=== PATIENT | male | born 1955 | race Caucasian/White ===

== ENCOUNTER 2019-05-03 08:41 | Day surgery (SDC) | payer MEDICARE ==
[2019-05-03] MEDS ORDERED: NACL 0.9% 1000 ML 1,000 ML IV SCH (11:00)
--- NOTE | 2019-05-03 11:06 | Anesthesia Day of Surgery ---
Anesthesia Day of Surgery - Day of Surgery Patient Examined: Yes Patient H&P Reviewed: Yes Patient is NPO: Yes Beta Blockers: Yes
--- NOTE | 2019-05-03 11:10 | Anesthesia Consultation ---
Anesthesia Consult and Med Hx Date of service: 05/03/19 - Airway Anesthetic Teeth Evaluation: Edentulous ROM Head & Neck: Adequate Mental/Hyoid Distance: Adequate Mallampati Class: Class II Intubation Access Assessment: Good - Pre-Operative Health Status ASA Pre-Surgery Classification: ASA3 Proposed Anesthetic Plan: MAC - Pulmonary Hx Smoking: Yes SOB: Yes COPD: Yes (HOME O2) Hx Sleep Apnea: Yes - Cardiovascular System Hx Hypertension: Yes Hx Coronary Artery Disease: Yes (Saw vacation sales advisor two months ago; NST-01/2019 ok per daughter) Hx Heart Attack/AMI: Yes - Central Nervous System CVA: Yes (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
[2019-05-03] MEDS ORDERED: XYLOCAINE MPF 2% ONE (12:00)
[2019-05-03] MEDS ORDERED: DIPRIVAN 10 MG/ML IV ONE ×3 (12:05)
[2019-05-03] MEDS ORDERED: WATER FOR IRRIG STERILE IR ONE (12:14)
--- NOTE | 2019-05-03 12:43 | Short Stay Summary ---
Short Stay Documentation Date of service: 05/03/19 Narrative H&P: The patient presents for EGD to evaluate epigastric pain and for screening colonoscopy having had no prior colonoscopy. No FH of colon neoplasia. - History Past Medical History: CAD, COPD, hypertension, stroke Past Surgical History: No surgical history Social history: no significant social history, lives with family, smoking (former smoker), no alcohol abuse - Allergies and Medications Current Medications: Allergies No Known Allergies Allergy (Verified 04/30/19 11:16) Home Medications Medication Instructions Recorded Confirmed Last Taken Type Albuterol Oral Liq (Nf) 2.5 mg INHALATION DAILY 04/30/19 04/30/19 Unknown History Atorvastatin 10 mg PO DAILY 04/30/19 05/03/19 05/02/19 History Breo Ellipta 100-25 Mcg INH 1 puff INHALATION DAILY 04/30/19 05/03/19 05/03/19 History Carvedilol 3.125 mg PO BID 04/30/19 05/03/19 05/02/19 History Hydroxyzine HCl 25 mg PO BID PRN 04/30/19 05/03/19 05/02/19 History ProAir HFA Inhaler 1 puff INHALATION PRN PRN 04/30/19 05/03/19 05/03/19 History Tamsulosin 0.4 mg PO DAILY 04/30/19 05/03/19 05/02/19 History Active Medications Sodium Chloride (Nacl 0.9% 1000 Ml) 1,000 mls @ 50 mls/hr IV DIRECT NICHELLE Last Admin: 05/03/19 11:25 Dose: 50 mls/hr Documented by: - Physical exam General appearance: no acute distress, well-nourished Integumentary: no rash, no growths, no abnormal pigmentation HEENT: Atraumatic, PERRLA, EOMI, Mucous membr. moist/pink Lungs: Clear to auscultation Breasts: deferred Heart: Regular rate, Normal S1, Normal S2, No murmurs Gastrointestinal: normoactive bowel sounds, no tenderness, no distended, no masses, no guarding, no organomegaly, no obese Male Genitourinary: deferred Rectal Exam: normal exam-external/orifice, no mass Extremities: no ischemia, pulses intact, pulses symmetrical, No edema, normal temperature, normal color, Full ROM Neurological: Normal gait, Normal speech, Strength at 5/5 X4 ext, Normal tone, Sensation intact, Cranial nerves 3-12 NL - Brief post op/procedure progress note Date of procedure: 05/03/19 Findings: reports dictated Estimated blood loss: none Pathology: list (antral biopsies for h.pyloris) Specimen disposition: to lab Condition: stable - Disposition Condition at discharge: Good - Discharge Diagnoses (1) Epigastric pain Status: Acute (2) Colon cancer screening Status: Acute Short Stay Discharge Plan Activity: other (no driving for 24 hours) Weight Bearing Status: Full Weight Bearing Diet: regular Follow up with: TOM COFFMAN MD [Primary Care Provider] - 7 Days
--- NOTE | 2019-05-03 12:47 | Operative Report ---
Operative Report Operative Report: Date of procedure: 05/03/2019 Procedure: Esophagogastroduodenoscopy with biopsies of the antrum for H. pylori Preprocedure diagnosis: Epigastric pain. History of ulcers. Post procedure diagnosis: Multiple shallow duodenal ulcers. Gastritis. Endoscopist: Dr. Mcneil Anesthesia: Monitored anesthesia care per anesthesia department Medications: Propofol per anesthesia. Estimated blood loss: We will After careful discussion of the nature and purpose of the procedure as well as details the technique risks benefits and alternatives consent was obtained. The patient was placed in the left lateral decubitus position and medicated per anesthesia. The tip of the [employer] EQ 570 video scope was passed per orum under direct vision into the esophagus and advanced into the stomach and descending duodenum. The descending duodenum the duodenal bulb reveals multiple shallow ulcers from 5-7 mm in size. The pylorus was symmetrical and normal. The scope was withdrawn into the stomach and the stomach then gently insufflated with air. The antrum revealed patchy erythema but no ulcers. 3 biopsies were taken to assess for H. pylori infection. The stomach was further insufflated and the scope was then retroflexed and partially withdrawn. The cardia, fundus, and body of the stomach were within normal limits and easily distensible.The scope was then withdrawn in the forward position. The esophagogastric junction was at 40 cm. The esophageal body was normal throughout. The procedure was was well tolerated and the patient was observed in recovery. Impressions: Multiple shallow duodenal ulcers. Biopsies of the antrum pending for H. pylori. Mild gastritis. Plan: Await pathology. The patient called the office in approximately 10 days. Begin omeprazole 40 mg daily. Electronically signed: Andrei Mcneil MD
--- NOTE | 2019-05-03 12:48 | Operative Report ---
Operative Report Operative Report: Date of procedure: 05/03/2019 Preprocedure diagnosis: Cancer screening, no prior studies. Post procedure diagnosis: Normal colon Procedure: Colonoscopy to the cecum Endoscopist: Dr. Mcneil Anesthesia: Monitored anesthesia care per anesthesia department Estimated blood loss: 0 Medications: Monitored anesthesia care. See separate report by anesthesia for details. After careful discussion of the nature and purpose of the procedure as well as details of the technique risks benefits and alternatives the patient gave consent. Please see recent history and physical from the office. The patient was placed in the left lateral decubitus position and medicated per anesthesia. A rectal exam was performed sphincter tone was normal there were no masses palpable. The [employer] 570 scope was passed transanally and advanced under continuous direct vision without difficulty to the cecum. The colon was well prepared. The cecum was normal. The ascending colon was normal and on forward and retroflexed views. The transverse colon, descending colon, and sigmoid colon were normal. The rectum was normal on forward and retroflexed views. The procedure was well-tolerated overall and the patient was observed in recovery. Conclusions: Normal colonoscopy to the cecum. Plan: Repeat colonoscopy in 10 years, sooner if clinically indicated. Signed electronically: Anrdei Mcneil M.D.
[2019-05-03 13:23] VITALS: BP 109/64
== END 2019-05-03 08:42 | disposition home or self-care (01) ==
LOC: GIO 08:41
PROVIDERS: ATTEND Internal Medicine Gastroenterology
DX: Z12.11 Encounter for screening for malignant neoplasm of colon (principal); K29.50 Unspecified chronic gastritis without bleeding; K20.9 Esophagitis, unspecified; I25.10 Atherosclerotic heart disease of native coronary artery without angina pectoris; I25.2 Old myocardial infarction; E11.9 Type 2 diabetes mellitus without complications; E78.00 Pure hypercholesterolemia, unspecified; J44.9 Chronic obstructive pulmonary disease, unspecified; G47.30 Sleep apnea, unspecified; I10 Essential (primary) hypertension; M81.0 Age-related osteoporosis without current pathological fracture; F41.9 Anxiety disorder, unspecified; Z87.891 Personal history of nicotine dependence; Z79.899 Other long term (current) drug therapy; Z86.73 Personal history of transient ischemic attack (TIA), and cerebral infarction without residual deficits
CPT/HCPCS: 43239; 82962; 88305; 88342; G0121; J2704; J7030